=== PATIENT | female | born 1965 | race Caucasian/White ===

== ENCOUNTER 2016-11-29 19:58 | Inpatient (IN) | payer OTHER ==
[~2016-11-29] VITALS: Ht 162.6 cm; Wt 93.0 kg
[2016-11-30 05:21] LABS: HEMOGLOBIN 10.9 gm/dl (12.3-15.3); RED BLOOD COUNT 3.78 M/UL (4.00-5.10); WHITE BLOOD COUNT 17.2 K/UL (4.5-11.0)
[2016-11-30] MEDS ORDERED: LEVEMIR100 UNIT/1 SQ (11:41)
[2016-11-30] MEDS ORDERED: HYDRALAZINE HCL25 MG PO (11:42)
[2016-11-30] MEDS ORDERED: LISINOPRIL40 MG PO (11:43)
[2016-11-30] MEDS ORDERED: METFORMIN HCL1000 MG PO (11:43)
[2016-11-30] MEDS ORDERED: VITAMIN D22000 UNIT PO (11:44)
[2016-11-30] MEDS ORDERED: NORVASC 5 MG TAB5 MG PO (11:44)
[2016-11-30] MEDS ORDERED: METOPROLOL SUCC25 MG PO (11:45)
[2016-11-30] MEDS ORDERED: FENOFIBRATE145 MG PO (11:46)
[2016-12-01 03:29] LABS: HEMOGLOBIN 9.7 gm/dl (12.3-15.3); RED BLOOD COUNT 3.47 M/UL (4.00-5.10)
[2016-12-01 03:35] LABS: WHITE BLOOD COUNT 12.2 K/UL (4.5-11.0)
[2016-12-01 03:51] LABS: BUN/CREATININE RATIO 16 (0-10)
[2016-12-02 04:53] LABS: HEMOGLOBIN 9.6 gm/dl (12.3-15.3); RED BLOOD COUNT 3.37 M/UL (4.00-5.10)
[2016-12-02 05:22] LABS: BUN/CREATININE RATIO 9 (0-10)
[2016-12-03 05:41] LABS: HEMOGLOBIN 9.6 gm/dl (12.3-15.3); RED BLOOD COUNT 3.39 M/UL (4.00-5.10); WHITE BLOOD COUNT 6.6 K/UL (4.5-11.0)
[2016-12-03 06:01] LABS: BUN/CREATININE RATIO 9 (0-10)
[2016-12-03] MEDS ORDERED: TYLENOL 500 MG500 MG PO (11:09)
[2016-12-03] MEDS ORDERED: FLAGYL500 MG PO ×2 (11:14→11:35)
[2016-12-03] MEDS ORDERED: LEVAQUIN750 MG PO (11:35)
[2016-12-03] MEDS ORDERED: PROBIOTIC1 EAC2 PO (11:38)
[2017-01-13] MEDS ORDERED: HYDROCHLOROTHIA25 MG PO (08:12)
[2017-01-13] MEDS ORDERED: VITAMIN C 500500 MG PO (08:12)
[2017-01-13] MEDS ORDERED: FISH OIL 1,0001 EACH PO (08:13)
[2017-01-13] MEDS ORDERED: ZINC50 M1 PO (08:13)
[2017-01-13] MEDS ORDERED: FLONASE 0.05% N16 GM (08:14)
== END 2016-12-03 13:37 | disposition home or self-care (01) | DRG 392 ==
LOC: ER1 19:58 → ZEROF 11-30 10:47 → MED SURG 4 11-30 10:47
PROVIDERS: Emergency Medicine; ADMIT Family Medicine
DX: K57.20 Diverticulitis of large intestine with perforation and abscess without bleeding (principal); E11.649 Type 2 diabetes mellitus with hypoglycemia without coma; I10 Essential (primary) hypertension; E27.9 Disorder of adrenal gland, unspecified; R91.8 Other nonspecific abnormal finding of lung field; E78.1 Pure hyperglyceridemia; E55.9 Vitamin D deficiency, unspecified; J30.9 Allergic rhinitis, unspecified; Z88.0 Allergy status to penicillin; Z88.8 Allergy status to other drugs, medicaments and biological substances; Z79.84 Long term (current) use of oral hypoglycemic drugs; Z79.899 Other long term (current) drug therapy; Z82.49 Family history of ischemic heart disease and other diseases of the circulatory system; Z82.3 Family history of stroke; Z84.89 Family history of other specified conditions; T38.3X5A Adverse effect of insulin and oral hypoglycemic [antidiabetic] drugs, initial encounter; Z79.4 Long term (current) use of insulin; Y92.009 Unspecified place in unspecified non-institutional (private) residence as the place of occurrence of the external cause
CPT/HCPCS: 36415; 71010; 74000; 80048; 80053; 81001; 82150; 82962; 83690; 84703; 85025; 85027; 87040; 87086; 87210; 96374; 96375; 96376; 99285; J1956; J2270; J2405; J7030; J7050; Q9962

== ENCOUNTER → 2017-01-07 | Outpatient (CLI) | payer OTHER ==
[~2017-01-07] MED LIST: FENOFIBRATE145 MG PO; FISH OIL 1,0001 EACH PO; FLAGYL500 MG PO; FLONASE 0.05% N16 GM; HYDRALAZINE HCL25 MG PO; HYDROCHLOROTHIA25 MG PO; LEVAQUIN750 MG PO; LEVEMIR100 UNIT/1 SQ; LISINOPRIL40 MG PO; METFORMIN HCL1000 MG PO; METOPROLOL SUCC25 MG PO; NORCO 5-325 TA1 EACH PO; NORVASC 5 MG TAB5 MG PO; PROBIOTIC1 EAC2 PO; TYLENOL 500 MG500 MG PO; VITAMIN C 500500 MG PO; VITAMIN D22000 UNIT PO; ZINC50 M1 PO
[2017-01-07 09:28] LABS: HEMOGLOBIN 11.9 gm/dl (12.3-15.3); RED BLOOD COUNT 4.22 M/UL (4.00-5.10)
[2017-01-07 09:39] LABS: BUN/CREATININE RATIO 23 (0-10)
== END ==
LOC: OPSV2 08:00
PROVIDERS: Anesthesiology
DX: Z01.818 Encounter for other preprocedural examination (principal); Z01.810 Encounter for preprocedural cardiovascular examination; K57.20 Diverticulitis of large intestine with perforation and abscess without bleeding; I10 Essential (primary) hypertension; E11.9 Type 2 diabetes mellitus without complications
CPT/HCPCS: 80048; 85025; 93005

== ENCOUNTER 2017-01-14 06:09 | Inpatient (IN) | payer OTHER ==
[~2017-01-14] VITALS: Ht 162.6 cm; Wt 85.7 kg
[~2017-01-14 06:09] MED LIST changes: -NORCO 5-325 TA1 EACH PO
[2017-01-15 06:15] LABS: HEMOGLOBIN 10.5 gm/dl (12.3-15.3); RED BLOOD COUNT 3.75 M/UL (4.00-5.10); WHITE BLOOD COUNT 11.4 K/UL (4.5-11.0)
[2017-01-15 06:43] LABS: BUN/CREATININE RATIO 10 (0-10)
[2017-01-17 04:21] LABS: HEMOGLOBIN 9.9 gm/dl (12.3-15.3); RED BLOOD COUNT 3.57 M/UL (4.00-5.10); WHITE BLOOD COUNT 8.9 K/UL (4.5-11.0)
[2017-01-17 04:47] LABS: BUN/CREATININE RATIO 5 (0-10)
[2017-01-17] MEDS ORDERED: NORCO 5-325 TA1 EACH PO (14:42)
== END 2017-01-17 16:53 | disposition home or self-care (01) | DRG 330 ==
LOC: ZOBSOF 06:09 → OR 07:30 → EDSTATUS 07:30 → M/S 07:45
PROVIDERS: ADMIT Surgery
PROC: 0WQF0ZZ Repair Abdominal Wall, Open Approach (ICD-10-PCS; 2017-01-14)
PROC: 0DBM4ZZ Excision of Descending Colon, Percutaneous Endoscopic Approach (ICD-10-PCS; principal; 2017-01-14 07:45)
DX: K57.20 Diverticulitis of large intestine with perforation and abscess without bleeding (principal); K42.9 Umbilical hernia without obstruction or gangrene; E11.42 Type 2 diabetes mellitus with diabetic polyneuropathy; E11.65 Type 2 diabetes mellitus with hyperglycemia; I10 Essential (primary) hypertension; E78.5 Hyperlipidemia, unspecified; E78.1 Pure hyperglyceridemia; E66.9 Obesity, unspecified; Z68.35 Body mass index [BMI] 35.0-35.9, adult; R91.1 Solitary pulmonary nodule; E27.9 Disorder of adrenal gland, unspecified; Z79.84 Long term (current) use of oral hypoglycemic drugs; Z79.4 Long term (current) use of insulin; Z79.899 Other long term (current) drug therapy; Z88.5 Allergy status to narcotic agent; Z88.0 Allergy status to penicillin; Z88.8 Allergy status to other drugs, medicaments and biological substances; Z90.710 Acquired absence of both cervix and uterus; Z98.890 Other specified postprocedural states; Z83.3 Family history of diabetes mellitus; Z82.3 Family history of stroke; Z82.49 Family history of ischemic heart disease and other diseases of the circulatory system; Z83.49 Family history of other endocrine, nutritional and metabolic diseases
CPT/HCPCS: 36415; 80048; 80053; 82962; 85027; 86850; 86900; 86901; 86920; 94640; 94664; C9113; J1100; J1650; J1956; J2250; J2405; J2710; J2765; J2795; J3010; J7030; J7120

== ENCOUNTER → 2020-10-01 | Outpatient (CLI) | payer BC ==
[~2020-10-01] MED LIST changes: +NORCO 5-325 TA1 EACH PO
[2020-10-03 09:13] LABS: CREATININE, URINE 104.2 mg/dL (Not Estab.)
== END ==
LOC: EROP 17:22 → LAB 17:22
PROVIDERS: Internal Medicine Nephrology
DX: N18.30 Chronic kidney disease, stage 3 unspecified (principal)
CPT/HCPCS: 36415; 80053; 82043; 82570

== ENCOUNTER → 2020-10-24 | Outpatient (CLI) | payer BC | LOC: KOH-I 10:39 | DX: M54.5 Low back pain (principal); I12.9 Hypertensive chronic kidney disease with stage 1 through stage 4 chronic kidney disease, or unspecified chronic kidney disease; N18.9 Chronic kidney disease, unspecified; E11.22 Type 2 diabetes mellitus with diabetic chronic kidney disease; E78.5 Hyperlipidemia, unspecified; M47.817 Spondylosis without myelopathy or radiculopathy, lumbosacral region; M43.17 Spondylolisthesis, lumbosacral region; M77.8 Other enthesopathies, not elsewhere classified; M48.00 Spinal stenosis, site unspecified | CPT/HCPCS: 72110 ==

== ENCOUNTER → 2021-01-05 | Outpatient (CLI) | payer BC, OTHER ==
[2021-01-07 10:14] LABS: CREATININE, URINE 39.2 mg/dL (Not Estab.)
== END ==
LOC: LAB 17:45
PROVIDERS: Internal Medicine Nephrology
DX: N18.30 Chronic kidney disease, stage 3 unspecified (principal)
CPT/HCPCS: 80053; 82043; 82570

== ENCOUNTER → 2021-03-06 | Outpatient (CLI) | payer OTHER | LOC: MAMO 08:50 | DX: Z78.0 Asymptomatic menopausal state (principal); M54.5 Low back pain; E11.9 Type 2 diabetes mellitus without complications | CPT/HCPCS: 77080 ==

== ENCOUNTER → 2021-03-28 | Outpatient (CLI) | payer OTHER | LOC: MAMO 09:01 | DX: Z12.31 Encounter for screening mammogram for malignant neoplasm of breast (principal); M54.5 Low back pain; E11.9 Type 2 diabetes mellitus without complications | CPT/HCPCS: 77063; 77067 ==

== ENCOUNTER → 2021-07-15 | Outpatient (CLI) | payer OTHER ==
[2021-07-16 11:14] LABS: CREATININE, URINE 60.7 mg/dL (Not Estab.)
== END ==
LOC: LAB 08:18
PROVIDERS: Internal Medicine Nephrology
DX: R80.9 Proteinuria, unspecified (principal)
CPT/HCPCS: 36415; 80053; 82043; 82570

== ENCOUNTER → 2021-09-02 | Outpatient (CLI) | payer OTHER ==
[2021-09-02 08:38] LABS: BUN/CREATININE RATIO 19 (0-10)
== END ==
LOC: LAB 07:45
PROVIDERS: Internal Medicine Nephrology
DX: I10 Essential (primary) hypertension (principal)
CPT/HCPCS: 36415; 80048

== ENCOUNTER 2021-09-22 14:43 | Inpatient (IN) | payer OTHER ==
[~2021-09-22 14:43] MED LIST changes: +LISINOPRIL20 MG PO; -LISINOPRIL40 MG PO; -METOPROLOL SUCC25 MG PO; -NORVASC 5 MG TAB5 MG PO; +NORVASC10 MG PO; +TOPROL XL100 MG PO
[2021-09-22 19:11] LABS: HEMOGLOBIN 11.8 gm/dl (12.3-15.3); RED BLOOD COUNT 4.28 M/UL (4.00-5.10); WHITE BLOOD COUNT 15.3 K/UL (4.5-11.0)
[2021-09-23] MEDS ORDERED: COLACE100 MG PO (11:06)
[2021-09-23] MEDS ORDERED: HYDROCODON-ACE1 EAC2 PO (11:06)
[2021-09-23 11:52] LABS: HEMOGLOBIN 11.5 gm/dl (12.3-15.3); RED BLOOD COUNT 4.17 M/UL (4.00-5.10)
[2021-09-23] MEDS ORDERED: DOCUSATE SODIU100 MG PO (15:03)
[2021-09-23] MEDS ORDERED: JARDIANCE25 MG PO (15:10)
[2021-09-23] MEDS ORDERED: BENICAR40 MG PO (15:13)
[2021-09-23] MEDS ORDERED: LANTUS SOL100 UNIT/1 SQ (15:13)
[2021-09-23] MEDS ORDERED: CRESTOR40 MG PO (15:14)
[2021-09-23] MEDS ORDERED: CHLORTHALIDONE25 MG PO (15:14)
[2021-09-23] MEDS ORDERED: BACLOFEN10 MG PO (15:14)
[2021-09-23] MEDS ORDERED: HUMALOG100 UNIT/3 SQ (15:16)
== END 2021-09-23 13:10 | disposition home or self-care (01) | DRG 353 ==
LOC: ER1 14:43 → CDU 23:03
PROVIDERS: Emergency Medicine; Internal Medicine; Surgery; ADMIT Internal Medicine
PROC: 0WUF4JZ Supplement Abdominal Wall with Synthetic Substitute, Percutaneous Endoscopic Approach (ICD-10-PCS; principal; 2021-09-23 07:30)
DX: K43.6 Other and unspecified ventral hernia with obstruction, without gangrene (principal); U07.1 COVID-19; I12.9 Hypertensive chronic kidney disease with stage 1 through stage 4 chronic kidney disease, or unspecified chronic kidney disease; E11.22 Type 2 diabetes mellitus with diabetic chronic kidney disease; N18.2 Chronic kidney disease, stage 2 (mild); Z79.4 Long term (current) use of insulin; K66.0 Peritoneal adhesions (postprocedural) (postinfection); Z90.49 Acquired absence of other specified parts of digestive tract; Z98.891 History of uterine scar from previous surgery; Z88.6 Allergy status to analgesic agent; Z88.0 Allergy status to penicillin; Z88.8 Allergy status to other drugs, medicaments and biological substances; Z83.3 Family history of diabetes mellitus; Z82.49 Family history of ischemic heart disease and other diseases of the circulatory system; Z83.49 Family history of other endocrine, nutritional and metabolic diseases; Z87.19 Personal history of other diseases of the digestive system
CPT/HCPCS: 36415; 71045; 80053; 81001; 82962; 83690; 85025; 93005; 96374; 99285; C1713; C1781; G0378; J1100; J1170; J1885; J2001; J2405; J2704; J2710; J3010; J7030; J7040; J7120; Q9967; U0002